=== PATIENT | female | born 1975 | race Caucasian/White ===

== ENCOUNTER → 2017-12-19 | Outpatient (CLI) | payer OTHER ==
[~2017-12-19] MED LIST: ALBU90I; ALBU90OI6 INH; CODGUAEL PO; CYCL10 PO; ESCI10 PO; HYDACE5 PO; HYDR1TAB94 PO; IBUP800 PO; LEVFLO500 PO; MEDR10 PO; OXYACE5T PO; PRODEXEL PO; PROM25 PO; Prednisone20 MG PO; SERT25; VENL150ER PO
[2017-12-20 23:11] LABS: CHLAMYDIA TRACHOMATIS, NAA Negative (Negative); NEISSERIA GONORRHOEAE, NAA Negative (Negative)
== END | disposition home or self-care (01) ==
LOC: LAB 12:45 → LAB SHORT 12:45
PROVIDERS: Emergency Medicine
DX: N89.8 Other specified noninflammatory disorders of vagina (principal)
CPT/HCPCS: 87491; 87591

== ENCOUNTER 2018-09-16 06:54 | Emergency (ER) | payer MEDICAID ==
[~2018-09-16] VITALS: Ht 160 cm; Wt 65.8 kg
[2018-09-16 08:41] LABS: Influenza A Negative (NEGATIVE); Influenza B Negative (NEGATIVE)
[2018-09-16] MEDS ORDERED: PROM25 PO (08:49)
== END 2018-09-16 08:58 | disposition home or self-care (01) ==
LOC: ER 06:54
PROVIDERS: Physician Assistant
DX: R11.2 Nausea with vomiting, unspecified (principal); R19.7 Diarrhea, unspecified; Z88.0 Allergy status to penicillin; Z87.891 Personal history of nicotine dependence
CPT/HCPCS: 87804

== ENCOUNTER 2018-10-04 01:27 | Emergency (ER) | payer BC ==
[~2018-10-04] VITALS: Ht 160 cm; Wt 68.0 kg
[2018-10-04] MEDS ORDERED: IBUP600 PO (03:15)
[2018-10-04] MEDS ORDERED: Norco 5-325 Ta1 EACH PO (03:15)
[2018-10-04] MEDS ORDERED: CYCL10 PO (03:15)
== END 2018-10-04 03:55 | disposition home or self-care (01) ==
LOC: ER 01:27
DX: M54.5 Low back pain (principal); Z88.0 Allergy status to penicillin; Z87.891 Personal history of nicotine dependence
CPT/HCPCS: 36415; 72100; 96372-59; 96374; 96375; 99283-25; J1100; J1170; J1885; J3010

== ENCOUNTER 2019-12-06 00:58 | Inpatient (IN) | payer SELFPAY ==
[~2019-12-06] VITALS: Ht 157.5 cm; Wt 77.1 kg
[~2019-12-06 00:58] MED LIST changes: +IBUP600 PO; +Norco 5-325 Ta1 EACH PO
[2019-12-06 01:47] LABS: Source, Urine Voided
[2019-12-06 01:52] LABS: Bilirubin, Urine Neg (Neg); Blood, Urine 1+ (Neg); Glucose Qualitative, Urine Neg (Neg); Ketones, Urine 3+ (Neg); Leukocyte Esterase, Urine 1+ (Neg); Nitrite, Urine Neg (Neg); Protein, Urine 2+ (Neg); Urobilinogen, Urine NORM (Normal)
[2019-12-06] MEDS ORDERED: VENL150ER PO (01:52)
[2019-12-06 02:02] LABS: Appearance, Urine Cloudy (Clear); Color, Urine Yellow (P-Yellow)
[2019-12-06 02:03] LABS: Amorphous Heavy (0-Heavy); Bacteria Many /hpf; Red Blood Cells, Urine 0-2 /hpf (0-2); Squamous Epithelial Cells Mod /hpf (Few); White Blood Cells, Urine 0-2 /hpf (0-5)
[2019-12-06 02:06] LABS: BASOPHILS ABSOLUTE AUTO 0.05 K/mm3 (0.00-0.23); BASOPHILS PERCENT AUTO 0 % (0-2); EOSINOPHILS ABSOLUTE AUTO 0.42 K/mm3 (0.00-0.68); EOSINOPHILS PERCENT AUTO 3 % (0-6); Hematocrit 42.6 % (33.0-51.0); Hemoglobin 14.3 g/dL (11.5-16.0); IMMATURE GRAN PERCENT AUTO 1 % (0-1); LYMPHOCYTES ABSOLUTE AUTO 2.51 K/mm3 (0.84-5.20); LYMPHOCYTES PERCENT AUTO 15 % (21-46); MONOCYTES ABSOLUTE AUTO 0.83 K/mm3 (0.16-1.47); MONOCYTES PERCENT AUTO 5 % (4-13); Mean Corpuscular HGB 26.9 pg (26.0-34.0); Mean Corpuscular HGB Conc 33.6 g/dL (31.5-36.5); Mean Corpuscular Volume 80 fL (80-100); Mean Platelet Volume 8.7 fL (9.1-12.4); NEUTROPHILS ABSOLUTE AUTO 12.71 K/mm3 (1.96-9.15); NEUTROPHILS PERCENT AUTO 77 % (41-73); Platelet Count 323 K/mm3 (150-400); RDW Coefficient Variation 12.7 % (11.7-14.2); RDW Standard Deviation 36.6 fL (35.1-46.3); Red Blood Cell Count 5.32 M/mm3 (3.80-5.20); White Blood Cell Count 16.62 K/mm3 (4.00-11.30)
[2019-12-06 02:12] LABS: Alanine Aminotransfer (ALT/SGP 21 U/L (12-78); Albumin, Blood 4.4 g/dL (3.4-5.0); Alk Phos 114 U/L (50-136); Anion Gap 12 mmol/L (6-16); Aspartate Aminotrans (AST/SGOT 16 U/L (12-37); Bilirubin, Total 0.6 mg/dL (0.1-1.0); Blood Urea Nitrogen 16 mg/dL (8-24); Bun/Creatinine Ratio 17.6 (12.0-20.0); CO2, Blood 20 mmol/L (21-32); Calcium, Blood 9.3 mg/dL (8.5-10.1); Chloride, Blood 105 mmol/L (98-108); Creatinine, Blood 0.91 mg/dL (0.40-1.00); Globulin, Blood 4.6 g/dL (2.2-4.0); Glomerular Filtration Rate >60 (60-); Glucose, Blood 143 mg/dL (70-99); Potassium, Blood 3.7 mmol/L (3.5-5.5); Sodium, Blood 137 mmol/L (136-145)
[2019-12-06] MEDS ORDERED: QUET100 PO (05:53)
[2019-12-06] MEDS ORDERED: MINIPRESS5 MG PO (05:54)
--- NOTE | 2019-12-06 06:39 | NUR ---
SHIFT SUMMARY- PT. ARRIVED FROM ED VIA WHEELCHAIR. A&OX4, INDEP. DENIES THE NEED FOR PAIN MEDICATION AT THIS TIME. C/O NA. MEDICATED WITH ZOFRAN PER EMAR. PT. RESTING COMFORTABLY IN BED, NO APPARENT DISTRESS NOTED. IV FLUIDS INFUSING. CALL LIGHT WITHIN REACH AND SIDE RAILS UP X2. WILL CONT TO MONITOR.
--- NOTE | 2019-12-06 11:27 | NUR ---
dr odalis informed, no medication available via emr, assisted with non pharmalogical interventions, pt currently resting in bed states she is feeling better
--- NOTE | 2019-12-06 16:30 | NUR ---
a+o, medicated for pain and n/v, up for walk in hospital, fluids still running, rm air, call light in reach, received phone and clothes from family today, resting states that is what seems to help the most, cooperative with care, fluids running, will continue to monitor and treat until share bsr with noc nurse and pt
[2019-12-07 05:08] LABS: Hemoglobin 10.4 g/dL (11.5-16.0); Mean Corpuscular HGB 26.8 pg (26.0-34.0); Mean Corpuscular HGB Conc 32.5 g/dL (31.5-36.5); Mean Platelet Volume 8.6 fL (9.1-12.4); Platelet Count 179 K/mm3 (150-400); RDW Coefficient Variation 12.8 % (11.7-14.2); RDW Standard Deviation 38.4 fL (35.1-46.3); Red Blood Cell Count 3.88 M/mm3 (3.80-5.20)
[2019-12-07 05:09] LABS: Mean Corpuscular Volume 83 fL (80-100)
[2019-12-07 05:37] LABS: Alanine Aminotransfer (ALT/SGP 17 U/L (12-78); Albumin, Blood 2.8 g/dL (3.4-5.0); Albumin/Globulin Ratio 0.9 (0.8-1.8); Alk Phos 68 U/L (50-136); Anion Gap 9 mmol/L (6-16); Aspartate Aminotrans (AST/SGOT 16 U/L (12-37); Bilirubin, Total 0.6 mg/dL (0.1-1.0); Blood Urea Nitrogen 11 mg/dL (8-24); Bun/Creatinine Ratio 11.9 (12.0-20.0); CO2, Blood 20 mmol/L (21-32); Calcium, Blood 7.8 mg/dL (8.5-10.1); Chloride, Blood 113 mmol/L (98-108); Creatinine, Blood 0.92 mg/dL (0.40-1.00); Globulin, Blood 3.1 g/dL (2.2-4.0); Glomerular Filtration Rate >60 (60-); Glucose, Blood 82 mg/dL (70-99); Potassium, Blood 3.8 mmol/L (3.5-5.5); Sodium, Blood 142 mmol/L (136-145)
[2019-12-07 05:38] LABS: Total Protein, Blood 5.9 g/dL (6.4-8.2)
--- NOTE | 2019-12-07 06:41 | NUR ---
SHIFT SUMMARY- NO ACUTE EVENTS OVERNIGHT. PT. MEDICATED 1X FOR NA THIS SHIFT WITH GOOD EFFECT. AMBULATED IN THE HALLWAY, TOLERATED WELL. PT. ASLEEP T/O THE REST OF THE NIGHT, DID NOT REQUEST FOR PAIN MEDICATION. NO APPARENT DISTRESS NOTED. CALL LIGHT WITHIN REACH AND SIDE RAILS UP X2. WILL CONT TO MONITOR.
--- NOTE | 2019-12-07 09:48 | NUR ---
PATIENT DID NOT EAT BREAKFAST THIS SHIFT DUE TO BEING NPO AT THIS TIME.
--- NOTE | 2019-12-07 14:07 | NUR ---
12/07/19 1407 DARRELL SCHMITZ LATE ENTRY 1340 PT INTO ENDO 1. History, Chart, Medications and Allergies reviewed before start of procedure. 3-LEAD EKG REVIEWED WITH PHYSICIAN PRIOR TO START OF PROCEDURE. O2 VIA N/C INTACT THROUGHOUT SEDATION/PROCEDURE. MONITOR INTACT WITH CONTINUOUS PULSE OXIMETRY AND INTERMITTENT BP. PATIENT DETERMINED TO BE ASA APPROPRIATE FOR PROPOFOL SEDATION PRIOR TO START OF PROCEDURE BY DR. BENTON.
--- NOTE | 2019-12-07 18:15 | NUR ---
SHIFT SUMMARY- PT IS A/O, PLESANT AND COOPERATIVE. PT RECIEVED A SMALL BOWEL FOLLOW THROUGH THIS MORNING. UPON RETURNING PT BEGAN TO HAVE WATTERY STOOLS. DR. BENTON CONSULTED WENT FOR AN ENDOSCOPY THIS AFTERNOON. WAS UNABLE TO PREFORM WITHOUT ANESTESIOLOGIST. PT REPORTED IS HAVING SOME PAIN WHICH IS BEING TREATED PER MAR. SHE REPORTED NOT FEELING WELL DUE TO HUNGER, SPOKE WITH DR. DOAN AND SHE WAS PLACED ON A CLEAR LIQUID DIET WHICH WILL BE CHANGED TO NPO AFTER MIDNIGHT IN PREPREATION FOR ENDOSCOPY TOMORROW. PT IS ABLE TO AMBULATE.
--- NOTE | 2019-12-08 06:33 | NUR ---
44 year old Female with hx of ovarian cancer 7 years ago in remission had abd series with oral contrast & lad multiple watery stools after test. DR Stewart attempted Push endoscopy byt PT did not tolerate consious sedation for procedure so she has been NPO since midnight to have upper endoscopy today. Small bowel obstruction, no known hx of adhesions. PT tolerated clear liquid diet with mild nausea relieved by zofran. Acute lt upper quad pain sharp medicated with 50 mcg fent with good relief.
--- NOTE | 2019-12-08 18:39 | NUR ---
SHIFT SUMMARY- PT IS A/O, PLESANT AND COOPERATIVE. SHE SLEPT FOR MUCH OF THIS SHIFT. REQUIRED PAIN MEDICATIONS TWICE DURING THIS SHIFT WHICH HAD GOOD EFFECT IN PAIN RELIEF. DR BENTON OK'D TO GIVE MORNING MEDICATION OF EFFXOR AND LOVONOX. SHE WAS TAKEN DOWN AT 1600 TO HAVE A PUSH ENDOSCOPY THEY VISUALIZED THE STRICTURE AND TOOK A BIOPSY OF AN ULCERATION. UPON ARRIVING BACK ON THE UNIT SHE IS ALERT AND PLESANT. HER DIET WAS ADVANCED TO FULL LIQUID, TOLERATED WATER SO PROVIDED FULL LIQUID MEAL WHICH SHE TOLERATED WELL.
--- NOTE | 2019-12-08 20:10 | NUR ---
DR DEJA DUARTE called about inadequate pain control post push endoscopy with BX pain 7/[address] liberalized rx to Q 2 hours post procedure.
[2019-12-09 05:35] LABS: BASOPHILS ABSOLUTE AUTO 0.03 K/mm3 (0.00-0.23); BASOPHILS PERCENT AUTO 0 % (0-2); EOSINOPHILS ABSOLUTE AUTO 0.31 K/mm3 (0.00-0.68); EOSINOPHILS PERCENT AUTO 4 % (0-6); Hematocrit 34.6 % (33.0-51.0); Hemoglobin 11.4 g/dL (11.5-16.0); IMMATURE GRAN ABSOLUTE AUTO 0.01 K/mm3 (0.00-0.10); IMMATURE GRAN PERCENT AUTO 0 % (0-1); LYMPHOCYTES PERCENT AUTO 29 % (21-46); MONOCYTES ABSOLUTE AUTO 0.54 K/mm3 (0.16-1.47); MONOCYTES PERCENT AUTO 8 % (4-13); Mean Corpuscular HGB 26.9 pg (26.0-34.0); Mean Corpuscular HGB Conc 32.9 g/dL (31.5-36.5); Mean Corpuscular Volume 82 fL (80-100); Mean Platelet Volume 8.5 fL (9.1-12.4); NEUTROPHILS ABSOLUTE AUTO 4.18 K/mm3 (1.96-9.15); NEUTROPHILS PERCENT AUTO 58 % (41-73); Platelet Count 188 K/mm3 (150-400); RDW Coefficient Variation 12.6 % (11.7-14.2); RDW Standard Deviation 37.5 fL (35.1-46.3); Red Blood Cell Count 4.24 M/mm3 (3.80-5.20); White Blood Cell Count 7.17 K/mm3 (4.00-11.30)
[2019-12-09 05:57] LABS: Anion Gap 7 mmol/L (6-16); Blood Urea Nitrogen 8 mg/dL (8-24); Bun/Creatinine Ratio 9.2 (12.0-20.0); CO2, Blood 24 mmol/L (21-32); Calcium, Blood 8.6 mg/dL (8.5-10.1); Chloride, Blood 107 mmol/L (98-108); Creatinine, Blood 0.87 mg/dL (0.40-1.00); Glomerular Filtration Rate >60 (60-); Glucose, Blood 97 mg/dL (70-99); Magnesium, Blood 2.2 mg/dL (1.6-2.4); Sodium, Blood 138 mmol/L (136-145)
--- NOTE | 2019-12-09 06:20 | NUR ---
PT with hx of remote ovarian cancer & oophrectomy has small bowel obstruction with small bowell followthrough then push upper endo with pediatric endoscopy yesterday. BX taken of ulcerations & adhesive area. PT has increased lt upper abd pain after procedure with 50 mcg fentanyl liberalized to q 2 hours PRN. PT would like longer acting rx for her 8/10 lt upper quad pain. Tolearating diet & activity. Passed some flatus no BM. PT out walking in halls x 1 tolerated well. Registered Nurse PT is [facility] of SNF in [place]. Further tx of SBO per consult.
--- NOTE | 2019-12-09 18:21 | NUR ---
a+o, pain still not controlled with prescribed medication, pt walking in halls to help reduce pain, call light in reach, saline locked, rm air, no emisis reported, will continue to monitor and treat until share bsr with noc nurse and pt
--- NOTE | 2019-12-10 06:40 | NUR ---
SHIFT SUMMARY PATIENT ALERT AND ORIENTED. PATIENT MEDICATED NEEDED PER EMAR FOR PAIN. IV PATENT AND CURRENTLY INFUSING AT 100 ML/HR. BED IN LOWEST POSITION WITH WHEELS LOCKED. CALL LIGHT WITHIN REACH. REPORT GIVEN TO ONCOMING RN.
[2019-12-10 10:14] LABS: Cancer Antigen 19-9 9.1 U/mL (2.0-37.0); Carcinoembryonic Antigen 3.3 ng/mL (0.0-3.0)
--- NOTE | 2019-12-10 10:56 | NUR ---
intorduced self to patient. patient getting ready to go to ct for test ordered.
--- NOTE | 2019-12-10 12:28 | NUR ---
PATIENT REMOVED RING, EAR-RING STILL IN PLACE PIECE OF TAPE PLACED OVER EAR-RING. PATINET HAS VOIDED AND SHOWERED.
--- NOTE | 2019-12-10 17:10 | NUR ---
PT ARRIVED TO ROOM FROM PACU A&OX4. VSS. DRESSING TO MIDLINE ABD HAS DIME SIZED AMT SANGUINOUS DRAINAGE NOTED. MEDICATED PER ORDERS FOR 8/10 ABD PAIN. CALL LIGHT IN REACH.
--- NOTE | 2019-12-10 20:40 | NUR ---
PAIN: PT REP PAIN 7/10 W/GRINDING OPERATOR. PT REP PRESSWING BUTTON EVERY 10-150 MIN. PT VISIBLY UNCOMFORTABLE. PT REPOSITIONED FOR COMFORT. CALL PLACED TO ONCALL SURGEON, CURRENT GRINDING OPERATOR SETTINGS REVIEWED. NEW ORDERS FOR BASAL RATE W/DEMAND CHANGED TO 8MIN. WILL UPDATE GRINDING OPERATOR AND MONITOR FOR EFFECTIVENESS.
[2019-12-11 04:40] LABS: BASOPHILS ABSOLUTE AUTO 0.01 K/mm3 (0.00-0.23); BASOPHILS PERCENT AUTO 0 % (0-2); EOSINOPHILS ABSOLUTE AUTO 0.01 K/mm3 (0.00-0.68); EOSINOPHILS PERCENT AUTO 0 % (0-6); Hematocrit 32.4 % (33.0-51.0); Hemoglobin 10.7 g/dL (11.5-16.0); IMMATURE GRAN ABSOLUTE AUTO 0.02 K/mm3 (0.00-0.10); IMMATURE GRAN PERCENT AUTO 0 % (0-1); LYMPHOCYTES ABSOLUTE AUTO 1.09 K/mm3 (0.84-5.20); LYMPHOCYTES PERCENT AUTO 11 % (21-46); MONOCYTES ABSOLUTE AUTO 0.66 K/mm3 (0.16-1.47); MONOCYTES PERCENT AUTO 7 % (4-13); Mean Corpuscular HGB 26.9 pg (26.0-34.0); Mean Corpuscular Volume 81 fL (80-100); Mean Platelet Volume 8.6 fL (9.1-12.4); NEUTROPHILS ABSOLUTE AUTO 8.03 K/mm3 (1.96-9.15); NEUTROPHILS PERCENT AUTO 82 % (41-73); Platelet Count 192 K/mm3 (150-400); RDW Coefficient Variation 12.5 % (11.7-14.2); Red Blood Cell Count 3.98 M/mm3 (3.80-5.20); White Blood Cell Count 9.82 K/mm3 (4.00-11.30)
[2019-12-11 04:59] LABS: Anion Gap 4 mmol/L (6-16); Blood Urea Nitrogen 7 mg/dL (8-24); Bun/Creatinine Ratio 8.5 (12.0-20.0); CO2, Blood 27 mmol/L (21-32); Calcium, Blood 8.1 mg/dL (8.5-10.1); Chloride, Blood 107 mmol/L (98-108); Creatinine, Blood 0.83 mg/dL (0.40-1.00); Glomerular Filtration Rate >60 (60-); Glucose, Blood 143 mg/dL (70-99); Potassium, Blood 4.3 mmol/L (3.5-5.5); Sodium, Blood 138 mmol/L (136-145)
--- NOTE | 2019-12-11 06:45 | NUR ---
POD 1 S/P EXP LAP W/BOWEL RESECTION. PT VSS; SATS >90% ON RA. YUSUF DRESSING INTACT W/GOOD SEAL AND SX; NO ACTIVE DRNG NOTED. PT REP BETTER PAIN CONTROL AFTER MANUFACTURING APPLICATIONS ENGINEER ADJUSTMENDS MADE EARLY IN SHIFT. PT NPO PER ORDERS, HAD 1 EPISODE OF MILD NAUSEA, NO EMESIS. BT HYPO, NO FLATUS YET. PT UP OOB X1 W/1 ASSIST, DENIES DIZZINESS WHEN UP. PT USING CALL LIGHT FOR ASSISTANCE, WILL CONT TO MONITOR UNTIL REP GIVEN TO ONCOMING RN.
--- NOTE | 2019-12-11 15:51 | NUR ---
Bedside report was received from Lizzeth Jimenez at this time. The pt is awake, pleasantly conversant, and is eating ice chips. States that she finds it difficult to get up to the bathroom, but that she also realizes that it is important for her to have the activity, so it is "a catch-22". State she prefers the activity than using the bedside commode. Unable to visualize abdominal incision as it is presently convered with an abdominal binder, and the pt states it is very painful to remove it. States that her pain level at this time is tolerable. No acute distress or discomfort noted at this time.
--- NOTE | 2019-12-11 15:52 | NUR ---
PT RESTING IN BED, REPORTS PAIN IS "BETTER" REPORT GIVEN TO SELIN FIGUEROA RN TO ASSUME CARE.
--- NOTE | 2019-12-12 06:37 | NUR ---
PATIENT SLEPT MOST OF THE NIGHT. UP TO BR WITH MINIMAL ASSIST. PT VOIDING, TAKING ICE CHIPS. YUSUF DRESSING TO MIDLINE, COMPRESSED. PAIN IS CONTROLLED WITH FENTANLY DAIRY TECHNICIAN AND IV VALIUM. nO ACUTE CHANGES.
--- NOTE | 2019-12-12 18:04 | NUR ---
SHIFT SUMMARY NO ACUTE CHANGES THIS SHIFT. VSS. PT CONT TO USE FENTANYL PARCEL POST WEIGHER FOR PAIN MANAGEMENT. PT ALSO GIVEN ADDITIONAL X1 25MCG IVP FENTANYL FOR BREAKTHROUGH PAIN. KPAD TO ABD FOR COMFORT. YUSUF MIDLINE DRESSING REMAINS UNCHANGED WITH ABD BINDER IN PLACE. PT UP TO BRP WITH 1 MIN SBA. VOIDING SPONTANEOUSLY. PT DENIES PASSING GAS, BTS X4 QUAD ARE HYPOACTIVE. PT VERY SLOWLY KHOA CLEAR LIQ WITH MINIMAL PO INTAKE, MOSTLY ICE CHIPS. IVF INFUSING PER ORDERS. PT USES CALL LIGHT APPROPRIATELY.
--- NOTE | 2019-12-13 02:24 | NUR ---
BUSINESS REPRESENTATIVE: WASTED 5ML FENTANYL FROM BUSINESS REPRESENTATIVE W/MUMTAZ NARAYAN RN. SEE EMAR DOCUMENTATION.
--- NOTE | 2019-12-13 05:37 | NUR ---
PATIENT RESTED MOST OF SHIFT. PATIENT GETS UP TO BATHROOM WITH MINIMAL ASSISTANCE, VOIDING 400-500MLS. TWO IV STARTS ATTEMPTED, WILL REEVALUATE IN MORNING FOR POWERGLIDE. YUSUF DRESSING INTACT OVER MIDLINE INCISION, COMPRESSED, NO NEW BLOOD NOTED. ABDOMINAL BINDER IN PLACE. PATIENTS PAIN WELL CONTROLLED WITH SEAT COVER CUTTER. NO ACUTE CHANGES THIS SHIFT. CALL LIGHT IN REACH.
--- NOTE | 2019-12-13 16:31 | NUR ---
SHIFT SUMMARY PT SLOWLY KHOA FULL LIQUID DIET AND REPORTS PASSING GAS. FENTANYL SWITCHBOARD RECEPTIONIST DC'D AND TORADOL + 2 NORCO GIVEN TO PT FOR PAIN MANAGEMENT. YUSUF WOUND VAC TO MIDLINE REMAINS UNCHANGED. 1 MIN SBA TO BATHROOM. PT DID AMBULATE HALLWAYS TODAY. IVF INFUSING PER ORDERS. PT USES CALL LIGHT APPROPRIATELY.
[2019-12-14 04:02] LABS: BASOPHILS ABSOLUTE AUTO 0.01 K/mm3 (0.00-0.23); BASOPHILS PERCENT AUTO 0 % (0-2); EOSINOPHILS ABSOLUTE AUTO 0.49 K/mm3 (0.00-0.68); EOSINOPHILS PERCENT AUTO 9 % (0-6); Hematocrit 31.8 % (33.0-51.0); Hemoglobin 10.2 g/dL (11.5-16.0); IMMATURE GRAN ABSOLUTE AUTO 0.02 K/mm3 (0.00-0.10); IMMATURE GRAN PERCENT AUTO 0 % (0-1); LYMPHOCYTES ABSOLUTE AUTO 1.67 K/mm3 (0.84-5.20); LYMPHOCYTES PERCENT AUTO 32 % (21-46); MONOCYTES ABSOLUTE AUTO 0.47 K/mm3 (0.16-1.47); MONOCYTES PERCENT AUTO 9 % (4-13); Mean Corpuscular HGB 26.6 pg (26.0-34.0); Mean Corpuscular HGB Conc 32.1 g/dL (31.5-36.5); Mean Corpuscular Volume 83 fL (80-100); Mean Platelet Volume 8.2 fL (9.1-12.4); NEUTROPHILS ABSOLUTE AUTO 2.53 K/mm3 (1.96-9.15); NEUTROPHILS PERCENT AUTO 49 % (41-73); Platelet Count 168 K/mm3 (150-400); RDW Coefficient Variation 12.8 % (11.7-14.2); RDW Standard Deviation 38.8 fL (35.1-46.3); Red Blood Cell Count 3.84 M/mm3 (3.80-5.20); White Blood Cell Count 5.19 K/mm3 (4.00-11.30)
[2019-12-14 04:16] LABS: Anion Gap 4 mmol/L (6-16); Blood Urea Nitrogen 6 mg/dL (8-24); Bun/Creatinine Ratio 6.8 (12.0-20.0); CO2, Blood 29 mmol/L (21-32); Chloride, Blood 107 mmol/L (98-108); Creatinine, Blood 0.89 mg/dL (0.40-1.00); Glomerular Filtration Rate >60 (60-); Glucose, Blood 110 mg/dL (70-99); Potassium, Blood 4.2 mmol/L (3.5-5.5); Sodium, Blood 140 mmol/L (136-145)
--- NOTE | 2019-12-14 05:02 | NUR ---
PATIENT HAS RECIEVED PO MEDICATIONS FOR PAIN AND IV FENTANYL PUSH FOR BREAKTHOUGH PAIN. SHE STATED THAT SHE SLEPT MOST OF THE NIGHT. INDEPENDENT TO THE BR. VOIDING, DRINKING FLUIDS, TAKING IN JELLO, PUDDING AND CRACKERS WITHOUT NAUSEA OR VOMITING. PT IS PASSING GAS. WILL CONTINUE TO ENCOURAGE ADVANCEMENT OF DIET AND AMBULATION. NO ACUTE CHANGES.
--- NOTE | 2019-12-14 18:19 | NUR ---
SUMMARY NO ACUTE CHANGES T/O SHIFT. PT TEARFUL AT TIMES. MEDICATED PER ORDERS FOR PAIN T/O SHIFT. SPOKE TO DR HICKS REGARDING NORCO NOT ADEQUATELY MANAGING PAIN, ORDERS OBTAINED FOR PERCOCET. ADVANCED TO SOFT DIET FOR DINNER. PT INDEPENDENT IN ROOM. IN SHOWER AT THIS TIME.
--- NOTE | 2019-12-15 06:26 | NUR ---
SUMMARY CALLED PITA ROSARIO PT REPORTS WOULD RATHER HAVE PO MEDS FOR BREAKTHROUGH PAIN SHE CAN NOT DISCHARGE ON SUBLIMAZE.I CALLED [facility]ITA AND RECEIVED ORDER FOR VALIUM 5 MG PO AND PITA VERB DAYTIME PHYSICIANS WILL NEED TO READDRESS PAIN CONTROL TODAY.PT AWARE OF THIS CONVERSATION AND SLEPT QUIETLY AFTER VALIUM IN BETWEEN MEDS.PASSING FLATUS. TAKING PERCOCET AND TORADOL.VOIDING WITHOUT DIFF.PT HAD ABNORMAL U/A ON ADMIT,HOWEVER CURRENTLY DENIES ISSUES AND IS RECEIVING ROCEPHIN IV FOR THIS.
--- NOTE | 2019-12-15 18:28 | NUR ---
SHIFT SUMMARY PT HAS BEEN STRUGGLING WITH PAIN MANAGEMENT BUT STILL AMBULATED HALLWAYS, UP IN ROOM, AND SNACKING ON SOFT FOODS. DID HAVE A HEAVIER DINNER BUT SO FAR DECLINES NAUSEA. 1 EPISODE OF EMESIS THIS AM. NONE SINCE. NO DISTENTION OR BLOATING NOTED.
--- NOTE | 2019-12-16 04:53 | NUR ---
POD 6 S/P EXP LAP+RESECTION. PT VSS T/O NIGHT. DRESSING CDI, BINDER IN PLACE. PT CONT TO STRUGGLE W/PAIN CONTROL, ALT PO AND IV MEDS, PLUS VALIUM FOR SPASMS. BT ACTIVE, PT KHOA REG PO, NO N/V, IS PASSING FLATUS, NO BM. SUPPORT PRN AND ENCOURAGEMENT PRN T/O NIGHT. PT AMB INDEP IN HALLS, IS USING CALL LIGHT FOR ASSISTANCE, WILL CONT TO MONITOR UNTIL REP GIVEN TO ONCOMING RN.
[2019-12-16] MEDS ORDERED: OXYC10TA19 PO (17:48)
[2019-12-16] MEDS ORDERED: ONDA4ODT MM (17:48)
[2019-12-16] MEDS ORDERED: DIAZ5 PO (17:49)
[2019-12-16] MEDS ORDERED: COLACE100 MG PO (17:49)
--- NOTE | 2019-12-16 18:20 | NUR ---
DISCHARGE PT ESCORTTED OUT VIA W/C. SCRIPTS GIVEN. PT STATES SHE BELIEVES SHE WILL BE ABLE TO MANAGE PAIN AT HOME. PASSING GAS, TOLERATING DIET.
[2019-12-21 14:48] LABS: Performing Lab SYMBIODX; Test Name TISSUE BLOCK
== END 2019-12-16 18:45 | disposition home or self-care (01) | DRG 375 ==
LOC: ER 00:58 → MEDS 00:59 → ER 00:59 → MEDS 00:59 → ER 05:28 → MEDS 05:28 → SURS 12-10 16:09
PROVIDERS: Emergency Medicine; Internal Medicine; Internal Medicine Gastroenterology; Surgery; ADMIT Internal Medicine
PROC: 0DJ08ZZ Inspection of Upper Intestinal Tract, Via Natural or Artificial Opening Endoscopic (ICD-10-PCS; principal; 2019-12-07 13:30)
PROC: 0DDA8ZX Extraction of Jejunum, Via Natural or Artificial Opening Endoscopic, Diagnostic (ICD-10-PCS; 2019-12-08 07:30)
DX: C17.1 Malignant neoplasm of jejunum (principal); K56.609 Unspecified intestinal obstruction, unspecified as to partial versus complete obstruction; N39.0 Urinary tract infection, site not specified; F32.9 Major depressive disorder, single episode, unspecified; F41.9 Anxiety disorder, unspecified; B96.1 Klebsiella pneumoniae [K. pneumoniae] as the cause of diseases classified elsewhere
CPT/HCPCS: 36415; 71260; 74177; 74250; 80048; 80053; 81001; 81025; 82378; 83690; 83735; 85025; 85027; 86301; 87077; 87086; 87186; 88305; 88307; 88309; 93005; 93010; 94762; 96374-59; 96375-59; 99285-25; A9270-GY; J0696; J1100; J1170; J1610; J1650; J1885; J2250; J2270; J2405; J2704; J2710; J2765; J3010; J3360; J7030; J7120; Q9967

== ENCOUNTER 2020-01-12 08:59 | Day surgery (SDC) | payer OTHER ==
[~2020-01-12] VITALS: Ht 160 cm; Wt 73.5 kg
[~2020-01-12 08:59] MED LIST changes: +COLACE100 MG PO; +DIAZ5 PO; +MINIPRESS5 MG PO; +ONDA4ODT MM; +OXYC10TA19 PO; +QUET100 PO
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
--- NOTE | 2020-01-12 11:29 | NUR ---
01/12/20 Tricia Falk X-RAY COMPLETE, WILL CALL WITH RESULTS. DELMY
== END 2020-01-12 12:28 | disposition home or self-care (01) ==
LOC: ORSCSDS 08:59
PROVIDERS: Surgery
PROC: B5131ZA Fluoroscopy of Right Jugular Veins using Low Osmolar Contrast, Guidance (ICD-10-PCS; principal; 2020-01-12 10:15)
PROC: 05HM33Z Insertion of Infusion Device into Right Internal Jugular Vein, Percutaneous Approach (ICD-10-PCS; principal; 2020-01-12 10:15)
DX: C17.9 Malignant neoplasm of small intestine, unspecified (principal); Z79.899 Other long term (current) drug therapy
CPT/HCPCS: 77001; A9270-GY; C1751; C1788; J0690; J1642; J2250; J2405; J2704; J3010; J7120

== ENCOUNTER 2020-04-25 14:15 | Day surgery (SDC) | payer OTHER | END 2020-04-25 23:06 | disposition home or self-care (01) | LOC: RAD 14:15 | DX: T82.828A Fibrosis due to vascular prosthetic devices, implants and grafts, initial encounter (principal); Y83.2 Surgical operation with anastomosis, bypass or graft as the cause of abnormal reaction of the patient, or of later complication, without mention of misadventure at the time of the procedure; C17.1 Malignant neoplasm of jejunum; D70.1 Agranulocytosis secondary to cancer chemotherapy | CPT/HCPCS: 36598; Q9967 ==

== ENCOUNTER 2021-09-07 18:58 | Emergency (ER) | payer OTHER ==
[~2021-09-07] VITALS: Ht 157.5 cm; Wt 81.7 kg
== END 2021-09-07 19:51 | disposition home or self-care (01) ==
LOC: ER 18:58
DX: U07.1 COVID-19 (principal); Z88.0 Allergy status to penicillin; Z79.899 Other long term (current) drug therapy
CPT/HCPCS: 99283

== ENCOUNTER 2021-11-02 09:47 | Emergency (ER) | payer OTHER ==
[~2021-11-02] VITALS: Ht 175.3 cm; Wt 90.7 kg
[2021-11-02 10:14] LABS: BASOPHILS ABSOLUTE AUTO 0.03 K/mm3 (0.00-0.23); BASOPHILS PERCENT AUTO 0 % (0-2); EOSINOPHILS ABSOLUTE AUTO 0.16 K/mm3 (0.00-0.68); EOSINOPHILS PERCENT AUTO 2 % (0-6); Hematocrit 46.1 % (33.0-51.0); IMMATURE GRAN ABSOLUTE AUTO 0.01 K/mm3 (0.00-0.10); IMMATURE GRAN PERCENT AUTO 0 % (0-1); LYMPHOCYTES ABSOLUTE AUTO 1.92 K/mm3 (0.84-5.20); LYMPHOCYTES PERCENT AUTO 26 % (21-46); MONOCYTES ABSOLUTE AUTO 0.42 K/mm3 (0.16-1.47); MONOCYTES PERCENT AUTO 6 % (4-13); Mean Corpuscular HGB 28.9 pg (26.0-34.0); Mean Corpuscular HGB Conc 34.7 g/dL (31.5-36.5); Mean Corpuscular Volume 83 fL (80-100); Mean Platelet Volume 9.4 fL (9.1-12.4); NEUTROPHILS ABSOLUTE AUTO 4.92 K/mm3 (1.96-9.15); NEUTROPHILS PERCENT AUTO 66 % (41-73); Platelet Count 169 K/mm3 (150-400); RDW Coefficient Variation 12.7 % (11.7-14.2); RDW Standard Deviation 38.5 fL (35.1-46.3); Red Blood Cell Count 5.53 M/mm3 (3.80-5.20); White Blood Cell Count 7.46 K/mm3 (4.00-11.30)
[2021-11-02 10:32] LABS: Alanine Aminotransfer (ALT/SGP 43 U/L (12-78); Albumin, Blood 3.9 g/dL (3.4-5.0); Alk Phos 89 U/L (50-136); Anion Gap 12 mmol/L (6-16); Aspartate Aminotrans (AST/SGOT 26 U/L (12-37); Bilirubin, Total 0.6 mg/dL (0.1-1.0); Blood Urea Nitrogen 14 mg/dL (8-24); Bun/Creatinine Ratio 16.4 (12.0-20.0); CO2, Blood 23 mmol/L (21-32); Calcium, Blood 9.2 mg/dL (8.5-10.1); Chloride, Blood 107 mmol/L (98-108); Creatinine, Blood 0.85 mg/dL (0.40-1.00); Globulin, Blood 3.9 g/dL (2.2-4.0); Glomerular Filtration Rate >60 (60-); Glucose, Blood 168 mg/dL (70-99); Potassium, Blood 3.2 mmol/L (3.5-5.5); Sodium, Blood 142 mmol/L (136-145); Total Protein, Blood 7.8 g/dL (6.4-8.2)
[2021-11-02] MEDS ORDERED: DICY20 PO (12:13)
== END 2021-11-02 12:33 | disposition home or self-care (01) ==
LOC: ER 09:47
PROVIDERS: Emergency Medicine
DX: R10.10 Upper abdominal pain, unspecified (principal); R11.2 Nausea with vomiting, unspecified; Z88.0 Allergy status to penicillin; Z79.899 Other long term (current) drug therapy
CPT/HCPCS: 74177; 80053; 83690; 84484; 85025; 93005; 93010; 96374; 96375; 96376; 99284-25; J1170; J2405; J2550; J7030; Q9967

== ENCOUNTER 2022-01-16 22:32 | Emergency (ER) | payer OTHER ==
[~2022-01-16] VITALS: Ht 157.5 cm; Wt 81.7 kg
[~2022-01-16 22:32] MED LIST changes: +DICY20 PO; +Robaxin750 MG PO
[2022-01-16] MEDS ORDERED: AMOCLA875 PO (23:13)
== END 2022-01-16 23:30 | disposition home or self-care (01) ==
LOC: ER 22:32
DX: S61.251A Open bite of left index finger without damage to nail, initial encounter (principal); L08.9 Local infection of the skin and subcutaneous tissue, unspecified; W55.01XA Bitten by cat, initial encounter; Z79.899 Other long term (current) drug therapy
CPT/HCPCS: J0696

== ENCOUNTER 2022-07-11 09:04 | Day surgery (SDC) | payer OTHER ==
[~2022-07-11] VITALS: Ht 157.5 cm; Wt 96.5 kg
[~2022-07-11 09:04] MED LIST changes: +AMOCLA875 PO
[2022-07-11] MEDS ORDERED: ABILIFY MYCITE2 M2 PO (09:48)
[2022-07-11] MEDS ORDERED: PREG300 PO (09:49)
--- NOTE | 2022-07-11 15:20 | NUR ---
07/11/22 1520 Luis Vick PT REPORTED 6/10 PAIN UPON DISCHARGE, BUT SAID THIS WAS A TOLERABLE PAIN LEVEL FOR GOING HOME.
== END 2022-07-11 15:10 | disposition home or self-care (01) ==
LOC: ORSCSDS 09:04
PROVIDERS: Otolaryngology
PROC: 09TL0ZZ Resection of Nasal Turbinate, Open Approach (ICD-10-PCS; principal; 2022-07-11 10:45)
PROC: 09SM0ZZ Reposition Nasal Septum, Open Approach (ICD-10-PCS; principal; 2022-07-11 10:45)
DX: J34.2 Deviated nasal septum (principal); J34.3 Hypertrophy of nasal turbinates; Z85.038 Personal history of other malignant neoplasm of large intestine; Z85.43 Personal history of malignant neoplasm of ovary; E66.9 Obesity, unspecified; Z68.35 Body mass index [BMI] 35.0-35.9, adult; Z87.891 Personal history of nicotine dependence; Z79.899 Other long term (current) drug therapy
CPT/HCPCS: J0171; J2250; J2405; J2704; J3010; J7120

== ENCOUNTER 2022-09-13 09:24 | Emergency (ER) | payer OTHER ==
[~2022-09-13] VITALS: Ht 160 cm; Wt 99.8 kg
[~2022-09-13 09:24] MED LIST changes: +ABILIFY MYCITE2 M2 PO; +PREG300 PO
== END 2022-09-13 13:08 | disposition home or self-care (01) ==
LOC: ER 09:24
DX: R51.9 Headache, unspecified (principal); R07.81 Pleurodynia; V49.9XXA Car occupant (driver) (passenger) injured in unspecified traffic accident, initial encounter; Z88.0 Allergy status to penicillin; Z91.030 Bee allergy status; Z79.899 Other long term (current) drug therapy
CPT/HCPCS: 71100; 96374; 99284-25; A9270; J1885

== ENCOUNTER 2024-05-21 15:06 | Emergency (ER) | payer OTHER ==
[~2024-05-21] VITALS: Ht 157.5 cm; Wt 83.9 kg
[2024-05-21] MEDS ORDERED: PROM25 PO (15:17)
[2024-05-21] MEDS ORDERED: Ketorolac Tromethamine 30mg Vial IV ONE (15:40)
[2024-05-21 17:05] VITALS: BP 122/77
== END 2024-05-21 17:07 | disposition home or self-care (01) ==
LOC: ER 15:06
DX: S16.1XXA Strain of muscle, fascia and tendon at neck level, initial encounter (principal); V49.9XXA Car occupant (driver) (passenger) injured in unspecified traffic accident, initial encounter; Z79.899 Other long term (current) drug therapy; Z88.0 Allergy status to penicillin; Z91.030 Bee allergy status
CPT/HCPCS: 70450; 72125; 72128; 73562-LT; 96374; 99284-25; J1885